=== PATIENT | female | born 1990 | race Caucasian/White ===

== ENCOUNTER → 2019-12-14 | Outpatient (CLI) | payer OTHER ==
[2019-12-14 15:01] VITALS: BP 114/68; PULSE 80; RESP 18; TEMP 98.5; BMI 41.5
--- NOTE | 2019-12-14 16:28 | P.HPBAR ---
Bariatric H&P - History & Physicial H&P Date: 12/14/19 History & Physicial: Visit/CC: initial visit to clinic. switching surgeons to Dr Stack Patient initial contact: Initial weight: 146.964 kg Initial weight in pounds: 324.00 Height: 5 ft 7 in Initial BMI: 50.7 Last weight: Current weight: 120.202 kg Current weight in pounds: 265.00 Current BMI: 41.5 Richardson body weight (based on NIH guidelines): 61.235 kg Excess body weight loss: 31.2% The patient is a 29 year-old F who presents for Bariatric Assessment. She has the band 2013 and highest weight 324 pounds. Lowest weight was 260 pounds. She reports severe reflux started less than 6 months ago. Reflux is worse at night. Last adjustment was in 2013. Surgery done by Dr. Kim. She can tolerate foods at night. She has vomiting and water gets stuck. She is looking to have the band removed. Esophagram for slip. Removed 6 ml out band fluid. [place] good. Needed leg raises just below xiphoid. Past Medical History Past Medical History: GERD/Reflux, Hyperlipidemia, Thyroid Disorder History of Any Multi-Drug Resistant Organisms: None Reported Past Surgical History: Adenoidectomy, Bariatric Surgery, Section, Tonsillectomy Additional Past Surgical History / Comment(s): lap band 2013, lap band port revision 2013 Past Anesthesia/Blood Transfusion Reactions: No Reported Reaction Smoking Status: Never smoker - Past Family History Father Family Medical History: COPD, Coronary Artery Disease (CAD), Myocardial Infarction (GA) Sister(s) Family Medical History: Asthma Surgical - Exam Vital Signs Temp Pulse Resp BP 98.5 F 80 18 114/68 12/14/19 14:59 12/14/19 14:59 12/14/19 14:59 12/14/19 14:59 Bariatric Checklist Checklist: Plan: Checklist: EGD: 1. Hiatal hernia: 2. H. Pylori: HgbA1c: Vitamin D: Smoking: Primary care physician referral: Franklyn BEATTY); Dr Blanton Psychiatry clearance: Cardiology clearance: Sleep study: Diet journal: VTE risk score: VTE risk level: Rehab needs at discharge:
== END | disposition home or self-care (01) ==
LOC: BARWHC3 14:43
PROVIDERS: ATTEND Surgery Plastic and Reconstructive Surgery
DX: Z46.51 Encounter for fitting and adjustment of gastric lap band (principal); Z98.84 Bariatric surgery status
CPT/HCPCS: 99202

== ENCOUNTER → 2020-05-16 | Outpatient (CLI) | payer OTHER ==
[2020-05-16 16:41] VITALS: BP 116/81; PULSE 76; RESP 16; TEMP 98.1; BMI 49.1
--- NOTE | 2020-05-16 17:11 | P.PN ---
Subjective Progress Note Date: 05/16/20 Plan esophagram. Get labs. Needs band fill pending esophrogram. Objective - Vital Signs Vital signs: Vital Signs Temp 98.1 F 05/16/20 16:38 Pulse 76 05/16/20 16:38 Resp 16 05/16/20 16:38 BP 116/81 05/16/20 16:38 Pulse Ox Intake & Output 05/15/20 05/16/20 05/16/20 18:59 06:59 18:59 Weight 142.428 kg
== END | disposition home or self-care (01) ==
LOC: BARWHC3 16:19
PROVIDERS: ATTEND Surgery Plastic and Reconstructive Surgery
DX: E66.01 Morbid (severe) obesity due to excess calories (principal); K21.9 Gastro-esophageal reflux disease without esophagitis; E78.5 Hyperlipidemia, unspecified; E03.9 Hypothyroidism, unspecified
CPT/HCPCS: 99212

== ENCOUNTER → 2020-05-24 | Outpatient (CLI) | payer OTHER ==
--- NOTE | 2020-05-24 15:45 | FL ---
EXAMINATION TYPE: FL barium swallow DATE OF EXAM: 05/24/2020 COMPARISON: None HISTORY: Lap band, heartburn TECHNIQUE: A single contrast UGI study is performed. FINDINGS: Network Operations Analyst view was obtained. Lap band orientation appears normal. Real-time observation of fluoroscopy and overhead radiographs were obtained. The esophagus dilates normal caliber has normal contour the gastroesophageal junction. Contrast passe s through the lap band with minimal hesitancy. The horizontal drinking position there is complete stripping of the esophageal bolus. IMPRESSIONS: 1. Minimal hesitancy of contrast passing through the normal oriented lap band. 2. No suspicious esophageal abnormality.
== END ==
LOC: RADUSWWP 08:48
PROVIDERS: ATTEND Surgery Plastic and Reconstructive Surgery
DX: R13.10 Dysphagia, unspecified (principal)
CPT/HCPCS: 74220

== ENCOUNTER → 2020-08-15 | Outpatient (CLI) | payer OTHER ==
[2020-08-15 15:40] VITALS: BP 117/79; PULSE 79; RESP 16; TEMP 98.3; BMI 49.6
--- NOTE | 2020-08-15 16:35 | P.PN ---
Subjective Progress Note Date: 08/15/20 DATE OF SERVICE: 08/15/2020 CHIEF COMPLAINT: Morbid obesity HISTORY OF PRESENT ILLNESS: Beata Pappas is a 30-year-old female who comes with lifelong morbid obesity. She has the lap band placed since 2013. She is 7 years out. She reports uncontrolled weight gain despite prior band adjustments. She denies any current dysphagia. She presents for weight loss management. At height of 5 feet 7 inches, her ideal body weight is 158 pounds. Her highest weight was 324 pounds, BMI 50.9. She comes in 316 pounds from 313 pounds, 3 months ago. She has gained 3 pounds in 3 months. Her body mass index is 49.6. She has lost 7 pounds lifetime. Her percent excess weight loss is 5% lifetime. She is 158 pounds overweight. PAST MEDICAL HISTORY: 1. Morbid obesity due to excess calories 2. Body mass index of 50.9, initial 3. Gastroesophageal reflux disease 4. Anxiety 5. Depressive disorder 6. Hypothyroidism PAST SURGICAL HISTORY: 1. Adenoidectomy 2. Lap band surgery 3. section 4. Tonsillectomy HOME MEDICATIONS: Home Medications Medication Instructions Recorded Confirmed FLUoxetine HCL [PROzac] 40 mg PO DAILY 12/14/19 10/10/20 Levothyroxine Sodium [Synthroid] 75 mcg PO DAILY 12/14/19 10/10/20 Previous Rx's Medication Instructions Recorded Levothyroxine Sodium [Synthroid] 100 mcg PO DAILY #30 tab 08/15/20 ALLERGIES: Allergies Allergy/AdvReac Type Severity Reaction Status Date / Time No Known Allergies Allergy Verified 10/10/20 14:51 SOCIAL HISTORY: Past tobacco use. FAMILY HISTORY: No family history of ulcerative colitis disease or Crohn's disease. Family history of morbid obesity. No lupus in the family. No reports of stomach or esophageal cancer. REVIEW OF ORGAN SYSTEMS: CONSTITUTIONAL: At height of 5 feet 7 inches, her ideal body weight is 158 pounds. Her highest weight was 324 pounds, BMI 50.9. HEENT: Denies any active troubles with vision or hearing. Has troubles with swallowing. ENDOCRINE: No diabetes. Has hypothyroidism. CARDIOVASCULAR: Past reports of palpitations or heart attacks or chest pain. Hyperlipidemia. RESPIRATORY: Has daytime somnolence. Has asthma. GASTROINTESTINAL: Denies any bright red blood per rectum. No diarrhea. No constipation. Has gastroesophageal reflux disease. MUSCULOSKELETAL: Has lower back pain and joint pain. Has osteoarthritis of the knees. NEURO: No headaches. No seizure disorders. PSYCH: Has depression. No suicidal ideation. Anxiety. RHEUMATOLOGIC: No lupus. No rheumatoid arthritis. HEMATOLOGIC: Denies any abnormal bleeding or bruising. No personal history of DVTs. SKIN: No rash. No skin cancer. PHYSICAL EXAM: VITAL SIGNS: Height 5 foot 7 inches, weight 316 pounds. BMI 49.6 Vital Signs Temp 98.3 F 08/15/20 15:37 Pulse 79 08/15/20 15:37 Resp 16 08/15/20 15:37 BP 117/79 08/15/20 15:37 Pulse Ox GENERAL: Well-developed in no acute distress. HEENT: No scleral icterus. Extraocular movements grossly intact. Hears conversational speech. No nasal drainage. NECK: Supple without lymphadenopathy. CHEST: Nonlabored respirations with equal bilateral excursions. CARDIOVASCULAR: Regular rate and regular rhythm. Distal 2+ pulses. ABDOMEN: Obese, soft, nontender, nondistended. MUSCULOSKELETAL: No clubbing, cyanosis. NEURO: No focal or lateralizing signs. Cranial nerves 2 through 12 grossly within normal limits. PSYCH: Appropriate affect. Alert and oriented to person, place and time. SKIN: Good skin turgor. Well perfused. STUDIES: Esophagram independently reviewed with band orientation within normal limits. No presence of band slippage or hiatal hernia. Port in good position. This is my independent interpretation. LABS: Labs reviewed. Vit D is low. TSH 1.87. ASSESSMENT: 1. Morbid obesity due to excess calories 2. Body mass index of 50.8 initial, now 49.6 3. Gastroesophageal reflux disease 4. Anxiety 5. Depressive disorder 6. Hypothyroidism 7. Adjustable gastric band with complications 8. Dysphagia 9. Dietary surveillance and counseling PLAN: 1. Recommend adjust protein intake 70+ grams daily. 2. Recommend adjustment. 3. Follow up 1 month 4. Recommend increased synthroid to 100 mcg daily. PROCEDURE: Adjustment of gastric band. DESCRIPTION: After verbal consent, the patient was laid supine. The skin was cleansed. The skin was localized with 1% lidocaine without epinephrine 1 mL. A 22-gauge Frances needle was used to access the port to the left upper quadrant; 2.0 mL was found in the band and 0.5 mL was added. Total was 2.5 mL. She was able to tolerate drinking with mild restrictive symptoms as expected. Recommend followup as needed. Port finding the right of the scar with pictures obtained. Objective - Vital Signs Vital signs: Vital Signs Temp 98.3 F 08/15/20 15:37 Pulse 79 08/15/20 15:37 Resp 16 08/15/20 15:37 BP 117/79 08/15/20 15:37 Pulse Ox Intake & Output 08/14/20 08/15/20 08/15/20 18:59 06:59 18:59 Weight 143.789 kg
== END ==
LOC: BARWHC3 15:24
PROVIDERS: ATTEND Surgery Plastic and Reconstructive Surgery
DX: E66.01 Morbid (severe) obesity due to excess calories (principal); E03.9 Hypothyroidism, unspecified; F32.9 Major depressive disorder, single episode, unspecified; F41.9 Anxiety disorder, unspecified; K21.9 Gastro-esophageal reflux disease without esophagitis; Z71.3 Dietary counseling and surveillance; Z68.42 Body mass index [BMI] 45.0-49.9, adult; K95.09 Other complications of gastric band procedure; Z87.891 Personal history of nicotine dependence; Z79.899 Other long term (current) drug therapy
CPT/HCPCS: 99212